=== PATIENT | male | born 1990 | race Caucasian/White ===

== ENCOUNTER 2019-01-19 10:12 | Emergency (ER) | payer OTHER ==
[~2019-01-19] VITALS: Ht 165.1 cm; Wt 90.7 kg
[2019-01-19 10:16] VITALS: BP 147/86
--- NOTE | 2019-01-19 10:18 | NUR ---
Patient to bed 9. RN evaluating patient at bedside.
--- NOTE | 2019-01-19 10:18 | NUR ---
BIB . AAO X4 C/O FEVER X 3 DAYS, WAS 103.5, TOOK TYLENOL, FEVER COMES AND GOES.THIS MORNING WAS 102.7F, TOOK TYLENOL AT 0900. BODY ACHES, HEADACHE, SCALE 8/10. PT STATES NAUSEA DIARRHEA X 2DAYS, COUGHING WITH YELLOW GREEN PHLEGM. EQUAL MICHELLE CLEAR LUNGS UPON AUSCULTATION. ER TO [facility] PT.
--- NOTE | 2019-01-19 10:37 | NUR ---
Dr. Escamilla evaluating patient at bedside.
[2019-01-19] MEDS ORDERED: CLINDAMYCIN 600 MG/4 ML VIAL IM ONE (10:40)
[2019-01-19] MEDS ORDERED: DEXAMETHASONE 10 MG/ML VIAL IM ONE (10:40)
--- NOTE | 2019-01-19 11:15 | NUR ---
IM MEDICATIONS GIVEN ORDERED. PT TOLERATED WELL.
--- NOTE | 2019-01-19 11:35 | NUR ---
NO ADVERSE NOTED TO MEDICATIONS
[2019-01-19 11:41] VITALS: BP 128/89
--- NOTE | 2019-01-19 11:41 | NUR ---
Patient discharged with v/s stable. Written and verbal after care instructions given and explained. Patient alert, oriented and verbalized understanding of instructions. Ambulatory with steady gait. All questions addressed prior to discharge. ID band removed. Patient advised to follow up with PMD. Rx of Prednisone, Fioricet, Levaquin given. Patient educated on indication of medication including possible reaction and side effects. Opportunity to ask questions provided and answered.
== END 2019-01-19 11:41 | disposition home or self-care (01) ==
LOC: MED 10:12
DX: J32.9 Chronic sinusitis, unspecified (principal)
CPT/HCPCS: 96372; 99283; J1100; J3490

== ENCOUNTER 2019-04-21 12:10 | Emergency (ER) | payer OTHER ==
[~2019-04-21] VITALS: Ht 167.6 cm; Wt 91.6 kg
[2019-04-21 12:23] VITALS: BP 125/98
[2019-04-21] MEDS ORDERED: DICYCLOMINE 20 MG/2 ML VIAL IM ONE (12:35)
[2019-04-21] MEDS ORDERED: ONDANSETRON 4 MG ODT PO ONE (12:35)
[2019-04-21] MEDS ORDERED: NACL 0.9% 2,000 ML IV ONE (12:40)
[2019-04-21 13:36] LABS: BASOPHILS # (AUTO) 0.1 K/uL (0.00-0.22); BASOPHILS % (AUTO) 0.6 % (0.0-2.0); EOSINOPHILS % (AUTO) 0.1 % (0.0-4.0); HEMATOCRIT 46.3 % (36-52); HEMOGLOBIN 14.6 g/dL (12.0-18.0); LYMPHOCYTES # (AUTO) 0.5 K/uL (2.0-11.5); MEAN CORPUSCULAR HEMOGLOBIN 22 pg (27-31); MEAN CORPUSCULAR HGB CONC 32 g/dL (33-37); MEAN CORPUSCULAR VOLUME 68.7 fL (80-94); MONOCYTES # (AUTO) 0.6 K/uL (0.8-1.0); MONOCYTES % (AUTO) 3.2 % (1.7-9.3); NEUTROPHILS # (AUTO) 16.2 K/uL (1.8-7.7); NEUTROPHILS % (AUTO) 93.1 % (42.2-75.2); PLATELET COUNT (AUTO) 176 K/uL (140-450); RED BLOOD CELL COUNT(AUTO) 6.73 MIL/uL (4.20-6.10); RED CELL DISTRIBUTION WIDTH 20.4 % (11.6-13.7); WHITE BLOOD COUNT (AUTO) 17.4 K/uL (4.8-10.8)
[2019-04-21 13:52] LABS: APPEARANCE,URINE CLEAR (CLEAR); BILIRUBIN,URINE 1+ (NEGATIVE); BLOOD, URINE NEGATIVE (NEGATIVE); COLOR,URINE YELLOW (YELLOW); LEUKOCYTE ESTERASE ,URINE NEGATIVE (NEGATIVE); NITRITE, URINE NEGATIVE (NEGATIVE); UGLUCOSE NEGATIVE (NEGATIVE)
[2019-04-21 14:06] LABS: BARBITURATE, URINE NEG. ng/ml (NEG <=200); BENZODIAZEPINE, URINE NEG. ng/mL (NEG <=200); CANNABINOID, URINE NEG. ng/mL (NEG <=50); COCAINE, URINE NEG. ng/mL (NEG <=300); OPIATE, URINE NEG. ng/mL (NEG <=2000); PHENCYCLIDINE SCREEN,URINE NEG. ng/mL (NEG <=25)
[2019-04-21 14:07] LABS: ALBUMIN 4.4 g/dL (3.4-5.0); ANION GAP 15.8 (8-16); CREATININE 1.2 mg/dL (0.7-1.3); POTASSIUM 3.8 mmol/L (3.5-5.1); TOTAL BILIRUBIN 1.9 mg/dL (0.0-1.0)
[2019-04-21] MEDS ORDERED: PIPERACILLIN/TAZOBACTAM 3.375 GM in DEXTROSE 5% 50 ML IV ONE (14:35)
[2019-04-21] MEDS ORDERED: MORPHINE SULFATE 4 MG/ML SYR IVP ONE ×2 (14:35→18:10)
[2019-04-21] MEDS ORDERED: NACL 0.9% 1,500 ML IV ONE (14:35)
[2019-04-21] MEDS ORDERED: ACETAMINOPHEN EXTRA STRENGTH 500 MG TAB PO ONE (14:35)
[2019-04-21] MEDS ORDERED: PIPERACILLIN/TAZOBACTAM 3.375 GM VIAL IV ONE (14:55)
[2019-04-21] MEDS ORDERED: metroNIDAZOLE 500 MG/NS PREMIX 100 ML IV ONE (15:25)
[2019-04-21] MEDS ORDERED: KETOROLAC 30 MG/ML VIAL IVP ONE (15:30)
[2019-04-21] MEDS ORDERED: ONDANSETRON 4 MG/2 ML VIAL IVP ONE (18:10)
[2019-04-21 19:36] VITALS: BP 117/73
== END 2019-04-21 19:36 | disposition short-term general hospital (02) ==
LOC: MED 12:10
DX: K52.9 Noninfective gastroenteritis and colitis, unspecified (principal); A41.9 Sepsis, unspecified organism; Z91.09 Other allergy status, other than to drugs and biological substances
CPT/HCPCS: 36415; 74176; 80053; 80305; 81003; 83605; 83690; 85025; 87040; 96361; 96365; 96367; 96372; 96375; 96376; 99291; J0500; J1885; J2270; J2405; J2543; J3490; J7030; J7060

== ENCOUNTER 2024-04-15 22:01 | Emergency (ER) | payer OTHER ==
[~2024-04-15] VITALS: Ht 165.1 cm; Wt 87.5 kg
[2024-04-15 22:09] VITALS: BP 136/97; PULSE 98; RESP 18; TEMP 99.2; O2SAT 98
[2024-04-15 22:44] VITALS: O2SAT 99
--- NOTE | 2024-04-15 22:44 | NUR ---
33YO M bib self complaints of left-sided chest pain, headache, and abdominal pain. Patient's chest pain has been ongoing since , explaining it as constant and sharp. Patient's headache is explained as dizziness with room spinning sensation. Patients abdominal pain radiates to his left side and had associated symptoms of nausea and vomiting today. Patient had one episode of loss of consciousness yesterday, and only recalls waking up on the floor. Although denies head trauma. Patient states of having elevated blood pressure prior to arrival. pt states dizziness occurs when standing from sitting/lying position. No alleviating or exacerbating factors. Otherwise denies fever, cough, chills, other medical complaints. vss on bedside monitor. call light within reach. safety measures in place. nkda no med hx
--- NOTE | 2024-04-15 22:59 | NUR ---
33 Y/O MALE WITH C/O LEFT SIDE CHEST PAIN THAT RADIATES TO LEFT SIDE NECK AND HEAD X5 DAYS. PT ALSO REPORTS BLURRED VISION, BILATERAL FLANK PAIN, N/V. PT STATES HE FELL YESTERDAY, DENIES HEAD TRAUMA. PT REPORTS HAVING 4 ER VISITS. PT ALERT AND ORIENTED TO PERSON, PLACE, TIME, AND SITUATION. GAVIN AT BEDSIDE. PMHX: DENIES ALLERGIES: CATS, POLLEN, NUTS
[2024-04-15 23:34] LABS: BASOPHILS # (AUTO) 0.1 K/uL (0.00-0.22); BASOPHILS % (AUTO) 0.9 % (0.0-2.0); EOSINOPHILS # (AUTO) 0.3 K/uL (0-0.4); EOSINOPHILS % (AUTO) 2.4 % (0.0-4.0); HEMOGLOBIN 13.1 g/dL (12.0-18.0); LYMPHOCYTES # (AUTO) 3.5 K/uL (2.0-11.5); LYMPHOCYTES % (AUTO) 31.8 % (20.5-51.1); MEAN CORPUSCULAR HEMOGLOBIN 22 pg (27-31); MEAN CORPUSCULAR HGB CONC 31 g/dL (33-37); MEAN CORPUSCULAR VOLUME 69.1 fL (80-94); MONOCYTES # (AUTO) 0.8 K/uL (0.8-1.0); MONOCYTES % (AUTO) 7.5 % (1.7-9.3); NEUTROPHILS # (AUTO) 6.4 K/uL (1.8-7.7); NEUTROPHILS % (AUTO) 57.4 % (42.2-75.2); PLATELET COUNT (AUTO) 240 K/uL (140-450); RED BLOOD CELL COUNT(AUTO) 6.07 MIL/uL (4.20-6.10); RED CELL DISTRIBUTION WIDTH 22.3 % (11.6-13.7); WHITE BLOOD COUNT (AUTO) 11.1 K/uL (4.8-10.8)
[2024-04-15] MEDS: MECLIZINE 25 MG TAB PO ONE (23:38)
[2024-04-15 23:47] LABS: INR 1.02 (0.8-1.2); PARTIAL THROMBOPLASTIN TIME 24.5 secs (22-35.6); PROTHROMBIN TIME 10.7 secs (10.8-13.4)
[2024-04-15 23:52] LABS: ANION GAP 13.7 (8-16); CALCIUM 9.2 mg/dL (8.5-10.1); CREATININE 1.1 mg/dL (0.6-1.3); POTASSIUM 3.7 mmol/L (3.5-5.1)
[2024-04-15 23:53] LABS: ALANINE AMINOTRANSFERASE 54 U/L (12-78); ALKALINE PHOSPHATASE 109 U/L (50-136); ASPARTATE AMINOTRANSFERASE 17 U/L (15-37); BILIRUBIN,DIRECT 0.1 mg/dL (0.0-0.3); TOTAL BILIRUBIN 0.4 mg/dL (0.0-1.0); TOTAL PROTEIN, SERUM 7.1 g/dL (6.4-8.2)
[2024-04-15 23:59] LABS: LIPASE 39 U/L (16-77)
[2024-04-16] MEDS: NACL 0.9% 1,000 ML IV ONE (00:24)
[2024-04-16] MEDS: KETOROLAC 30 MG/ML VIAL IVP ONE (00:32)
[2024-04-16] MEDS ORDERED: MECL-303 PO (00:37)
[2024-04-16 00:55] VITALS: BP 119/77; PULSE 78; RESP 15; TEMP 97.7; O2SAT 99
--- NOTE | 2024-04-16 00:55 | NUR ---
Patient discharged with v/s stable. Written and verbal after care instructions given and explained. Patient verbalized understanding. Ambulatory with steady gait. All questions addressed prior to discharge. Advised to follow up with PMD.
== END 2024-04-16 00:55 | disposition home or self-care (01) ==
LOC: MED 22:01
DX: R07.89 Other chest pain (principal); R51.9 Headache, unspecified; R42 Dizziness and giddiness; R10.9 Unspecified abdominal pain; Z79.899 Other long term (current) drug therapy
CPT/HCPCS: 36415; 71045; 80048; 80076; 83690; 83880; 84443; 84484; 85025; 85610; 85730; 93005; 96361; 96374; 99285; J1885; J7030; J8597; Q0092